=== PATIENT | male | born 1970 | race Two or more races ===

== ENCOUNTER 2019-12-02 12:21 | Emergency (ER) | payer OTHER ==
[~2019-12-02] VITALS: Ht 170.2 cm; Wt 73.5 kg
[2019-12-02 12:42] VITALS: BP 141/98
[2019-12-02] MEDS ORDERED: Tetanus/Diptheria/Pertussis IM ONE (12:45)
--- NOTE | 2019-12-02 12:47 | NUR ---
ED Nurse Note:pt. was BIBA by [facility] and [facility] for medical clearance for self inflicted abraisions wound on his forehead
--- NOTE | 2019-12-02 12:58 | NUR ---
ED Nurse Note:pt. refused tetnus vaccine
--- NOTE | 2019-12-02 13:24 | Diagnostic Imaging Report ---
Indication: Headache Technique: Contiguous 5 mm thick transaxial imaging of the head obtained in a Siemens Sensation [address] scanner. Soft tissue and bone windows generated. Automatic Exposure Control was utilized. Total Dose length Product (DLP): 1041mGycm CT Dose Index Volume (CTDIvol): 53.4 mGy Comparison: none Findings: The size and configuration of the cortical sulci, basal cisterns, and ventricles are within normal limits for age. There is no mass effect, midline shift, or edema identified. There is no evidence of acute hemorrhage or abnormal intra-axial or extra-axial fluid collections. The bones and soft tissues are unremarkable. Impression: No mass effect, edema or acute bleed. The CT scanner at [facility] is accredited by the [employer] and the scans are performed using dose optimization techniques as appropriate to a performed exam including Automatic Exposure control.
--- NOTE | 2019-12-02 14:05 | Emergency Room Report ---
History of Present Illness General Chief Complaint: Medical Clearance Source: Patient, EMS Present Illness HPI 49 YO male presents to the ED in custody for medical clearance for incarceration. PT C/O Scalp laceration. Pt. reports hx of depression/PTSD and that he is "tired of being here anymore" and that he wants to " just " Pt. has no specific suicidal plans. He reports hx of 5150 hold 2x in the past. He reports being on anti-depressant medication which he self dc'd. Denies pain. He reports tenderness with palpation to the scalp. He denies nausea/vomiting, dizziness, LOC, syncope, or visual changes/loss of vision. He denies neck or back pain. Pt. denies abdominal pain. He denies CP, SOB, or dyspnea. Pt. 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 pt. reports he drank this am. He denies taking blood thinning medications. Allergies: Coded Allergies: No Known Allergies (Unverified , 12/02/19) Patient History Past Medical History: see triage record, psych hx - depression/PTSD Past Surgical History: none Pertinent Family History: none Immunizations: UTD Reviewed Nursing Documentation: PMH: Agreed; PSxH: Agreed Nursing Documentation-PMH Past Medical History: No History, Except For History Of Psychiatric Problem: Yes - ptsd Review of Systems All Other Systems: negative except mentioned in HPI Physical Exam Vital Signs Date Time Temp Pulse Resp B/P (MAP) Pulse Ox O2 Delivery O2 Flow Rate FiO2 12/02/19 12:15 98.1 20 141/98 (112) 98 Room Air 12/02/19 12:42 99 Sp02 EP Interpretation: reviewed, normal General Appearance: no apparent distress, alert, GCS 15, non-toxic Head: normocephalic, other - 0.5 inch superficial scalp laceration in the left forehead region just past the hairline. no obvious fb. Eyes: bilateral eye normal inspection, bilateral eye PERRL, bilateral eye EOMI ENT: hearing grossly normal, normal voice, other - no evidence of epistaxis or septal hematoma - there was dry blood on the face and under the nose. no TTP to the nose. Neck: full range of motion, no bony tend Respiratory: chest non-tender, lungs clear, normal breath sounds, no respiratory distress, no accessory muscle use, no wheezing, speaking full sentences Cardiovascular #1: regular rate, rhythm, no edema, normal capillary refill Gastrointestinal: normal bowel sounds, non tender, soft, non-distended, no guarding Musculoskeletal: back normal, normal range of motion, gait/station normal, non- tender Neurologic: alert, motor strength/tone normal, oriented x3, sensory intact, responsive, speech normal, grossly normal - no facial droop, no difficulty with word recall or delay in response time., no focal defects, other Psychiatric: judgement/insight normal, depressed affect - endorses being depressed and SI without plan Suicide Risk Assessment: Suicidal Ideation: Yes Had intent to initiate attempt: No Pt's plan for suicide attempt: No Has means to complete attempt: No - currently in custody Skin: laceration - 0.5 inch superficial scalp laceration in the left forehead region just past the hairline. no obvious fb. Procedures Laceration/Wound Repair Laceration/Wound Repair : Consent: Verbal Wound Location: head Wound's Depth, Shape: superficial Wound Length (cm): 1 Wound Explored: clean Irrigated w/ Saline (ccs): 500 Betadine Prep?: Yes Wound Debrided: None Wound Repaired With: Dermabond Sterile Dressing Applied?: No Splint Applied?: No Sling Applied?: No Patient Tolerated: Well Complications: None Medical Decision Making PA Attestation Dr. Hall is my supervising Physician whom patient management has been discussed with. Diagnostic Impression: Primary Impression: Superficial laceration of scalp Qualified Codes: S01.01XA - Laceration without foreign body of scalp, initial encounter Additional Impressions: Medical clearance for incarceration History of depression ER Course 49 YO male presents to the ED in custody for medical clearance for incarceration. PT C/O Scalp laceration. Pt. reports hx of depression/PTSD and that he is "tired of being here anymore" and that he wants to " just " Pt. has no specific suicidal plans. He reports hx of 5150 hold 2x in the past. He reports being on anti-depressant medication which he self dc'd. Denies pain. He reports tenderness with palpation to the scalp. He denies nausea/vomiting, dizziness, LOC, syncope, or visual changes/loss of vision. He denies neck or back pain. Pt. denies abdominal pain. He denies CP, SOB, or dyspnea. Pt. 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 pt. reports he drank this am. He denies taking blood thinning medications. Ddx considered but are not limited to Head Trauma, [place], ACS, SI/HI, URI, SAH, Fractures, Dislocations, aspirations Tazer barbs, Abrasions, PSA, intoxication, subdural hematoma, or lacerations.. Vital signs: are WNL, pt. is afebrile H&PE are most consistent with: superficial scalp laceration otherwise normal limited physical examination. No focal neurological deficits. Pt. alert, NAD, and engaged in conversation. ORDERS: -CT Head without contrast: unremarkable ED INTERVENTIONS: -Tdap vaccine was ordered due to pt. reporting unk vaccination date in triage. During visit pt. declines Tdap and reports he has received one within the last 5 years. - Wound care - Dermabond applied to superficial left sided scalp laceration. -I do not identify an emergent medical condition at this time. Pt. is stable for psychiatric eval. DISCHARGE: At this time pt. is stable for d/c to law enforcement and will receive psychiatric eval while incarcerated. Will provide printed patient care instructions, and any necessary prescriptions. Care plan and follow up instructions have been discussed with the patient prior to discharge. CT/MRI/US Diagnostic Results CT/MRI/US Diagnostic Results : Imaging Test Ordered: CT Head No Contrast Impression " No evidence of acute fracture, hemorrhage, or intracranial process". Per official radiology report- Please see report for specific details. Last Vital Signs Date Time Temp Pulse Resp B/P (MAP) Pulse Ox O2 Delivery O2 Flow Rate FiO2 12/02/19 12:51 98.1 20 141/98 (112) 98 Room Air 12/02/19 12:42 99 Disposition: D/C TO LAW ENFORCEMENT IN CUST Condition: Stable Nida Tatum Dec 02, 2019 14:04
[2019-12-02 14:15] VITALS: BP 141/98
--- NOTE | 2019-12-02 14:15 | NUR ---
ED Nurse Note:pt. was medically cleared for nursing home by ER [facility] ,[facility] officer signed d/c instructions and took pt. in custody
== END 2019-12-02 14:15 ==
LOC: EDBD 12:21 → EMR 12:30
DX: Z02.89 Encounter for other administrative examinations (principal); S01.01XA Laceration without foreign body of scalp, initial encounter; F32.9 Major depressive disorder, single episode, unspecified; R45.851 Suicidal ideations; X58.XXXA Exposure to other specified factors, initial encounter; Y93.9 Activity, unspecified; Y92.9 Unspecified place or not applicable
CPT/HCPCS: 70450; 99284